=== PATIENT | female | born 1985 | race African-American/Black ===

== ENCOUNTER 2021-01-12 08:11 | Emergency (ER) | payer OTHER ==
[~2021-01-12] VITALS: Ht 180.3 cm; Wt 110.0 kg
[2021-01-12 08:18] VITALS: BP 138/79
[2021-01-12] MEDS ORDERED: IBUPROFEN 600MG TABLET PO ONE (08:45)
== END 2021-01-12 09:53 | disposition home or self-care (01) ==
LOC: ER 08:11
DX: M25.531 Pain in right wrist (principal); I10 Essential (primary) hypertension; Z91.81 History of falling
CPT/HCPCS: 29125; 73130; 99283

== ENCOUNTER 2021-04-21 10:29 | Emergency (ER) | payer MEDICARE, MEDICAID ==
[~2021-04-21] VITALS: Ht 177.8 cm; Wt 141.0 kg
[2021-04-21 11:24] LABS: BASOPHILS % 0.3 % (0.0-2.0); HEMATOCRIT. 32.3 % (36.0-48.0); HEMOGLOBIN. 10.3 g/dL (12.0-16.0); MEAN CORPUSCULAR HEMOGLOBIN 23.1 pg (28.0-32.0); MEAN CORPUSCULAR VOLUME 72.3 fL (81.0-99.0); MEAN PLATELET VOLUME 9.7 fl (7.4-10.4); MONOCYTES % 10.3 % (2.0-8.0); NEUTROPHILS % 73.4 % (40.0-76.0); PLATELET 216 x1000/uL (130-400); RED BLOOD CELL COUNT 4.47 mill/uL (4.2-5.4)
[2021-04-21 11:31] LABS: CHLORIDE 108 mEq/L (98-107)
[2021-04-21 11:35] LABS: HCG SCREEN NEGATIVE
[2021-04-21] MEDS ORDERED: KETOROLAC 15MG/ML VIAL IV ONE (11:45)
[2021-04-21] MEDS ORDERED: ALBUTEROL 6.7GM HFA INHALER ORI NR (11:45)
[2021-04-21] MEDS ORDERED: DEXAMETHASONE 4MG TABLET PO NR (11:45)
[2021-04-21] MEDS ORDERED: POTASSIUM BICARB/CIT ACID 25 MEQ TABLET.EFF PO ONE (12:45)
[2021-04-21] MEDS ORDERED: DEXA4TAB MT (13:25)
[2021-04-21] MEDS ORDERED: ALBU6.7H11 INH (13:25)
[2021-04-21] MEDS ORDERED: DOXY100T28 MT (13:25)
[2021-04-21 14:10] VITALS: BP 115/61
== END 2021-04-21 14:11 | disposition home or self-care (01) ==
LOC: ER 10:29
DX: U07.1 COVID-19 (principal); J12.82 Pneumonia due to coronavirus disease 2019; J45.901 Unspecified asthma with (acute) exacerbation; I10 Essential (primary) hypertension
CPT/HCPCS: 36415; 71045; 80053; 83880; 84484; 84703; 85025; 85379; 93005; 94640; 96374; 99285; C9803; J1885; J8540; U0003; U0005